=== PATIENT | female | born 1980 | race Two or more races ===

== ENCOUNTER 2017-08-12 12:37 | Inpatient (IN) | payer MEDICAID ==
[~2017-08-12] VITALS: Ht 172.7 cm; Wt 119.4 kg
[2017-08-12 13:27] LABS: Urine WBC None Seen /hpf (0 - 5)
[2017-08-12 13:37] LABS: Eosinophils # (auto) 0.1 uL; Hemoglobin 9.3 g/dL (12.2-16.2); Lymphocytes % (auto) 31.6 % (10.0-50.0); Monocytes # (auto) 0.5 uL; Neutrophils % (auto) 56.2 % (37.0-80.0); Nucleated Red Blood Cells % 0.1 %
[2017-08-12 13:39] LABS: Basophils # (auto) 0 uL; Basophils % (auto) 0.8 % (0.0-2.0); Eosinophils % (auto) 2.2 % (0.0-7.0); Hematocrit 30.1 % (36.0-46.0); Lymphocytes # (auto) 1.8 uL; Mean Corpuscular Hgb Conc. 30.7 g/dL (32.0-36.0); Mean Corpuscular Volume 65.1 fL (80.0-100.0); Monocytes % (auto) 9.2 % (0.0-12.0); Neutrophils # (auto) 3.3 uL; Platelet Count (auto) 240 10^3/uL (140-450); Red Blood Cells 4.63 10^6/uL (4.0-5.20); White Blood Cell 5.8 10^3/uL (4.4-10.8)
[2017-08-12 13:45] LABS: Urine Bacteria NONE SEEN /hpf (None Seen); Urine Blood Negative /uL (Negative); Urine Specific Gravity 1.001 (1.001-1.035)
[2017-08-12 14:17] LABS: Albumin 3.4 g/dL (3.4-5.0); BUN/Creatinine Ratio 9.1; Bilirubin, Total 0.2 mg/dL (0.2-1.0); Calcium 8.2 mg/dL (8.5-10.1); Potassium 3.4 mmol/L (3.5-5.1); Total Protein 8.2 g/dL (6.4-8.2)
[2017-08-12] MEDS ORDERED: ONDANSETRON HCL 4 MG/2 ML VIAL IV PRN (15:00)
[2017-08-12] MEDS ORDERED: PANTOPRAZOLE 40 MG/10 ML VIAL IV ONE (15:00)
[2017-08-12] MEDS: D5W/SOD CHL 0.45%/KCL 20MEQ 1,000 ML IV SCH (15:00)
[2017-08-12] MEDS: MORPHINE SULFATE 4 MG/ML SYR/VIAL IV PRN (18:02)
[2017-08-12 20:00] VITALS: BP 141/89
[2017-08-12 22:00] VITALS: BP 141/89
[2017-08-13] VITALS (7 sets, daily range): BP systolic 119–133; BP diastolic 67–72
[2017-08-13 05:55] LABS: Basophils # (auto) 0 uL; Eosinophils # (auto) 0.1 uL; Hemoglobin 8.4 g/dL (12.2-16.2); Lymphocytes # (auto) 1.3 uL; Monocytes # (auto) 0.4 uL; White Blood Cell 4.5 10^3/uL (4.4-10.8)
[2017-08-13 05:58] LABS: Basophils % (auto) 0.5 % (0.0-2.0); Hematocrit 26.6 % (36.0-46.0); Lymphocytes % (auto) 28.2 % (10.0-50.0); Mean Corpuscular Hemoglobin 20.3 pg (28.0-32.0); Mean Corpuscular Hgb Conc. 31.4 g/dL (32.0-36.0); Mean Corpuscular Volume 64.5 fL (80.0-100.0); Monocytes % (auto) 9.5 % (0.0-12.0); Neutrophils # (auto) 2.7 uL; Neutrophils % (auto) 59.8 % (37.0-80.0); Nucleated Red Blood Cells % 0.1 %; Platelet Count (auto) 188 10^3/uL (140-450); Red Blood Cells 4.11 10^6/uL (4.0-5.20); Red Cell Distribution Width 19.1 % (11.8-14.3)
[2017-08-13] MEDS: D5W/SOD CHL 0.45%/KCL 20MEQ 1,000 ML IV SCH ×2 (06:00→17:40)
[2017-08-13 06:04] LABS: INR 0.97 (0.9-1.15); Partial Thromboplastin Time 29.6 sec (22.64-33.71); Prothrombin Time 10.6 sec (9.37-12.3)
[2017-08-13 06:20] LABS: Albumin 2.8 g/dL (3.4-5.0); BUN/Creatinine Ratio 8.6; Bilirubin, Total 0.4 mg/dL (0.2-1.0); Calcium 7.8 mg/dL (8.5-10.1); Potassium 3.6 mmol/L (3.5-5.1); Total Protein 6.9 g/dL (6.4-8.2)
[2017-08-13] MEDS ORDERED: SUCCINYLCHOLINE CHLORIDE 20 MG/ML 10ML VIAL IV ONE (06:54)
[2017-08-13] MEDS ORDERED: MEPERIDINE HCL (50 MG/ML) 1 ML VIAL ONE (07:02)
[2017-08-13] MEDS ORDERED: fentaNYL CITRATE 100 MCG/2 ML VL ONE (07:02)
[2017-08-13] MEDS ORDERED: ONDANSETRON HCL 4 MG/2 ML VIAL ONE (07:02)
[2017-08-13] MEDS ORDERED: PROPOFOL 10 MG/ML 20 ML IV ONE (07:02)
[2017-08-13] MEDS ORDERED: MIDAZOLAM HCL 1MG/1ML-2 ML VIAL ONE (07:02)
[2017-08-13] MEDS ORDERED: ROCURONIUM 10MG/ML 10ML VIAL IV ONE (07:02)
[2017-08-13] MEDS ORDERED: ceFAZolin 1GM/50ML 50 ML IV ONE (07:11)
[2017-08-13] MEDS ORDERED: KETOROLAC TROMETH 30 MG/ML 1ML VIAL IV ONE (07:45)
[2017-08-13] MEDS ORDERED: METOCLOPRAMIDE HCL 5MG/ml INJ 2ml VIAL IV ONE (07:45)
[2017-08-13] MEDS ORDERED: NEOSTIGMINE 1 MG/ML INJ (10mg/10ML VIAL) ONE (07:56)
[2017-08-13] MEDS ORDERED: KETOROLAC TROMETH 60MG/2ML VIAL IM ONE (07:56)
[2017-08-13] MEDS ORDERED: GLYCOPYRROLATE 0.2 MG/ML 1ML VIAL ONE (07:56)
[2017-08-13] MEDS: MORPHINE SULFATE 4 MG/ML SYR/VIAL IV PRN ×3 (08:35→16:21)
[2017-08-13] MEDS: HYDROcodone-ACET 5/325MG TAB PO PRN ×2 (11:13→18:00)
[2017-08-13] MEDS: PANTOPRAZOLE 40 MG/10 ML VIAL IV SCH (11:15)
[2017-08-13 14:39] LABS: % Iron Saturation 5.1 % (15-50)
[2017-08-13] MEDS ORDERED: SODIUM FERR GLUC 62.5MG/5ML 125 MG in SODIUM CHL 0.9% 100 ML IV ONE (15:00)
[2017-08-14] MEDS: HYDROcodone-ACET 5/325MG TAB PO PRN ×2 (03:06→09:30)
[2017-08-14 05:36] VITALS: BP 130/75
[2017-08-14 05:36] LABS: Basophils # (auto) 0 uL; Eosinophils # (auto) 0.1 uL; Monocytes # (auto) 0.6 uL; White Blood Cell 6.1 10^3/uL (4.4-10.8)
[2017-08-14 05:38] LABS: Basophils % (auto) 0.2 % (0.0-2.0); Eosinophils % (auto) 1.1 % (0.0-7.0); Hematocrit 26.1 % (36.0-46.0); Hemoglobin 8.1 g/dL (12.2-16.2); Lymphocytes % (auto) 15.8 % (10.0-50.0); Mean Corpuscular Hemoglobin 20.3 pg (28.0-32.0); Mean Corpuscular Volume 65.7 fL (80.0-100.0); Monocytes % (auto) 9.8 % (0.0-12.0); Neutrophils # (auto) 4.4 uL; Neutrophils % (auto) 73.1 % (37.0-80.0); Platelet Count (auto) 195 10^3/uL (140-450); Red Blood Cells 3.97 10^6/uL (4.0-5.20); Red Cell Distribution Width 19.2 % (11.8-14.3)
[2017-08-14 09:00] VITALS: BP 132/82
[2017-08-14] MEDS: PANTOPRAZOLE 40 MG/10 ML VIAL IV SCH (09:29)
[2017-08-14] MEDS ORDERED: PANT40TA2 PO (09:41)
[2017-08-14] MEDS ORDERED: PANTOPRAZOLE 40 MG TAB PO SCH (10:00)
[2017-08-14] MEDS ORDERED: SODIUM FERR GLUC 62.5MG/5ML 125 MG in SODIUM CHL 0.9% 100 ML IV SCH (12:00)
[2017-08-15] MEDS ORDERED: PANTOPRAZOLE 40 MG TAB PO SCH (10:00)
== END 2017-08-14 11:00 | disposition home or self-care (01) | DRG 263 ==
LOC: ER 12:37 → OVERFLOW 12:38 → WEST WING 19:40
PROVIDERS: ADMIT Internal Medicine; ATTEND Internal Medicine
PROC: 0FT44ZZ Resection of Gallbladder, Percutaneous Endoscopic Approach (ICD-10-PCS; principal; 2017-08-13 07:19)
DX: K80.10 Calculus of gallbladder with chronic cholecystitis without obstruction (principal); Z68.41 Body mass index [BMI] 40.0-44.9, adult; E66.01 Morbid (severe) obesity due to excess calories; D50.0 Iron deficiency anemia secondary to blood loss (chronic)
CPT/HCPCS: 36415; 76705; 80053; 81001; 82150; 82247; 83540; 83550; 83690; 84702; 85025; 85610; 85730; 86850; 86900; 86901; 96361; 96374; 96375; C9113; J0330; J0690; J1885; J2250; J2405; J2704

== ENCOUNTER 2017-08-22 13:14 | Emergency (ER) | payer MEDICAID ==
[~2017-08-22] VITALS: Ht 175.3 cm; Wt 114.8 kg
[~2017-08-22 13:14] MED LIST: PANT40TA2 PO
[2017-08-22 17:34] VITALS: BP 141/85
== END 2017-08-22 18:14 | disposition home or self-care (01) ==
LOC: ER 13:14
DX: R10.9 Unspecified abdominal pain (principal); Z48.01 Encounter for change or removal of surgical wound dressing; Z90.49 Acquired absence of other specified parts of digestive tract

== ENCOUNTER 2019-10-18 11:51 | Emergency (ER) | payer MEDICAID ==
[~2019-10-18] VITALS: Ht 172.7 cm; Wt 117.9 kg
[2019-10-18 12:57] LABS: Urine WBC None Seen /hpf (0 - 5)
[2019-10-18] MEDS ORDERED: ASPirin 81 mg TAB PO ONE (13:00)
[2019-10-18 13:02] LABS: Basophils # (auto) 0 10 ^3/uL (0-0.2); Eosinophils # (auto) 0.1 10 ^3/uL (0-0.8); Lymphocytes # (auto) 1.7 10 ^3/uL (0.4-5.4); Mean Corpuscular Hemoglobin 24.3 pg (28.0-32.0); Monocytes # (auto) 0.5 10 ^3/uL (0-1.3); Neutrophils # (auto) 3.7 10 ^3/uL (1.6-8.6); Nucleated Red Blood Cells % 0.1 %; White Blood Cell 6.1 10^3/uL (4.4-10.8)
[2019-10-18 13:04] LABS: Basophils % (auto) 0.7 % (0.0-2.0); Hematocrit 39.8 % (36.0-46.0); Hemoglobin 12.9 g/dL (12.2-16.2); Lymphocytes % (auto) 28.4 % (10.0-50.0); Mean Corpuscular Hgb Conc. 32.3 g/dL (32.0-36.0); Mean Corpuscular Volume 75.2 fL (80.0-100.0); Monocytes % (auto) 8.5 % (0.0-12.0); Neutrophils % (auto) 60.4 % (37.0-80.0); Platelet Count (auto) 196 10^3/uL (140-450); Red Blood Cells 5.29 10^6/uL (4.0-5.20)
[2019-10-18 13:07] LABS: Urine Bacteria NONE SEEN /hpf (None Seen); Urine Blood 1+ /uL (Negative); Urine Specific Gravity 1.004 (1.001-1.035)
[2019-10-18 13:17] LABS: Alanine Aminotransferase 22 U/L (13-56); Albumin 3.1 g/dL (3.4-5.0); Anion Gap 6 (5-15); Blood Urea Nitrogen 7 mg/dL (7-18); Calcium 8.3 mg/dL (8.5-10.1); Carbon Dioxide 25 mmol/L (21-32); Chloride 105 mmol/L (98-107); Glucose 81 mg/dL (74-106); Magnesium 2.4 mg/dL (1.6-2.6); Potassium 3.6 mmol/L (3.5-5.1); Sodium 136 mmol/L (136-145)
[2019-10-18 13:22] LABS: Alkaline Phosphatase 94 U/L (45-117); Aspartate Aminotransferase 10 U/L (15-37); BUN/Creatinine Ratio 11.1; Bilirubin, Total 0.3 mg/dL (0.2-1.0); GFR African American 137 mL/min; GFR Non-African American 113 mL/min; Total Protein 8.4 g/dL (6.4-8.2)
[2019-10-18 13:27] LABS: INR 0.99 (0.9-1.15); Partial Thromboplastin Time 34.2 sec (23.64-32.05)
[2019-10-18 15:05] VITALS: BP 126/77
[2019-10-18] MEDS ORDERED: IOHEXOL 350 MG/ML 100ML IJ ONE (15:59)
== END 2019-10-18 18:42 | disposition home or self-care (01) ==
LOC: ER 11:51
DX: R07.89 Other chest pain (principal); Z32.02 Encounter for pregnancy test, result negative; Z90.49 Acquired absence of other specified parts of digestive tract; Z98.51 Tubal ligation status
CPT/HCPCS: 36415; 71045; 71275; 80053; 81001; 81025; 83735; 83880; 84443; 84484; 85025; 85379; 85610; 85730; 93005; 99285; Q9967

== ENCOUNTER 2021-03-10 14:12 | Emergency (ER) | payer MEDICAID ==
[~2021-03-10] VITALS: Ht 167.6 cm; Wt 108.9 kg
[2021-03-10 16:35] VITALS: BP 121/77
[2021-03-10] MEDS ORDERED: KETOROLAC TROMETH 60MG/2ML VIAL IM ONE (17:00)
== END 2021-03-10 17:41 | disposition home or self-care (01) ==
LOC: ER 14:12 → EDUNIT# 14:12 → EDBD 14:12 → ER 17:41
DX: S20.211A Contusion of right front wall of thorax, initial encounter (principal); S20.212A Contusion of left front wall of thorax, initial encounter; Z79.899 Other long term (current) drug therapy; Z90.49 Acquired absence of other specified parts of digestive tract; Z98.51 Tubal ligation status; Z98.890 Other specified postprocedural states; V49.59XA Passenger injured in collision with other motor vehicles in traffic accident, initial encounter; Y93.89 Activity, other specified; Y92.488 Other paved roadways as the place of occurrence of the external cause; Y99.8 Other external cause status
CPT/HCPCS: 71046; 96372; 99283; J1885